=== PATIENT | male | born 1945 | race Caucasian/White ===

== ENCOUNTER 2017-06-24 16:35 | Emergency (ER) | payer OTHER ==
[~2017-06-24] VITALS: Ht 190.5 cm; Wt 72.9 kg
[~2017-06-24 16:35] MED LIST: AMLO5TAB2 PO; ASPCH81 PO; FENU1CAP2 PO; LPR25 PO; METO25TA56 PO
[2017-06-24 16:39] VITALS: TEMP 36.6; Ht 190.5 cm; Wt 72.9 kg
[2017-06-24] MEDS ORDERED: SODIUM POLYST. SULF SUSP 15G/60ML PO STA (17:40)
[2017-06-24] MEDS ORDERED: SODIUM CHLORIDE 0.9% 1000ML 1,000 ML IV STA (17:40)
[2017-06-24 18:16] LABS: ISTAT CREATININE 2.2 mg/dl (0.6-1.3); ISTAT HEMOGLOBIN 16.7 g/dl (14.0-18.0); ISTAT IONIZED CALCIUM 1.24 mmol/l (1.12-1.32)
[2017-06-24] MEDS ORDERED: TURM1CAP2 PO (18:55)
[2017-06-24] MEDS ORDERED: OMEG10007 PO (18:55)
[2017-06-24] MEDS ORDERED: ZINC1TAB PO (18:55)
[2017-06-24] MEDS ORDERED: ASCO500C43 PO (18:55)
[2017-06-24] MEDS ORDERED: ENAL5TAB83 PO (18:55)
[2017-06-24] MEDS ORDERED: [UNRECOGNIZED DRUG - CODE] PO (18:55)
[2017-06-24] MEDS ORDERED: COEN1CAP17 PO (18:55)
[2017-06-24] MEDS ORDERED: ATOR-22 PO (18:55)
[2017-06-24] MEDS ORDERED: NUTRCAP54 PO (18:55)
--- NOTE | 2017-06-24 19:40 | EMERGENCY ROOM VISIT NOTE ---
History Report prepared by David: Charanjit Butler Under the Supervision of: Dr. Rishabh Covington D.O. First contact with patient: 17:33 Chief Complaint: ABNORMAL LABS Stated Complaint: POTASSIUM LEVEL OF 6 History of Present Illness The patient is a 72 year old male who presents to the Emergency Room with complaints of an abnormal potassium level of 6. He has a past medical history of kidney disease for the past year. He states that it has been well controlled over this time. 2 weeks ago, the patient's K level was 6.0, but he stopped taking his organic potassium supplement, and it went down to 5.3. Last week, he got his bottom teeth pulled, and has been having an abnormal from baseline diet of soft prepared meals. He usual eats organically, and has been for the past 40 years. Since he began eating this way, his K has been elevated. He went to a check up with his PCP today, and was referred here. He currently feels fine, and denies any abnormal symptoms. His only medication is Metoprolol. Source of History: patient Onset: 2 weeks Position: other (global) Symptom Intensity: K of 6 Quality: other (Abnormal labs) Timing: waxes/wanes Note: He denies any other abnormal symptoms. Review of Systems See HPI for pertinent positives & negatives. A total of 10 systems reviewed and were otherwise negative. Past Medical & Surgical Medical Problems: (1) Arrhythmia Family History Hypertension Social History Smoking Status: Never Smoker Smokeless Tobacco Use: No Alcohol Use: none Drug Use: none Marital Status: single Housing Status: lives alone Occupation Status: retired Current/Historical Medications Scheduled Ascorbic Acid (Vitamin C 500 mg), 500 MG PO DAILY Atorvastatin (Lipitor), 20 MG PO DAILY Coenzyme Q10 (Ubidecarenone) (Co Q 10), 100 MG PO DAILY Enalapril (Vasotec), 5 MG PO DAILY Fish Oil ([place]-3), 1 CAP PO DAILY Metoprolol Tartrate (Lopressor), 50 MG PO QAM Metoprolol Tartrate (Lopressor) (Lopressor), 25 MG PO QPM Nicotinamide Adenine Dinucleot (Nadh), 10 MG PO MWF Nutritional Supplements (Grapeseed Extract), 1 CAP PO DAILY Turmeric (Curcuma Longa) (Turmeric), 2 CAP PO DAILY Zinc Gluconate (Zinc), 50 MG PO DAILY Allergies Coded Allergies: Lisinopril (Verified Allergy, Intermediate, overall physical decline, 09/06) Physical Exam Vital Signs Date Time Temp Pulse Resp B/P (MAP) Pulse Ox O2 Delivery O2 Flow Rate FiO2 06/24/17 19:47 69 16 171/82 98 06/24/17 19:05 69 18 160/73 100 Room Air 06/24/17 18:11 64 20 144/51 96 06/24/17 17:43 66 06/24/17 16:39 36.6 68 18 157/74 98 Physical Exam CONSTITUTIONAL/VITAL SIGNS: Reviewed / noted above. GENERAL: Non-toxic in appearance. INTEGUMENTARY: Warm, dry, and [place]. HEAD: Normocephalic. EYES: without scleral icterus or trauma. ENT/OROPHARYNX: clear and moist. LYMPHADENOPATHY/NECK: Is supple without lymphadenopathy or meningismus. RESPIRATORY: Lungs clear and equal. CARDIOVASCULAR: Regular rate and rhythm. GI/ABDOMEN: Soft and nontender. No organomegaly or pulsatile mass. No rebound or guarding. Normal bowel sounds. EXTREMITIES: Warm and well perfused. BACK: No CVA tenderness. NEUROLOGICAL: Intact without focal deficits. PSYCHIATRIC: normal affect. MUSCULOSKELETAL: Normally developed with good muscle tone. Medical Decision & Procedures Laboratory Results Test 06/24/17 18:03 Bedside Hemoglobin 16.7 g/dl (14.0-18.0) Bedside Hematocrit 49 % (42-52) Bedside Sodium 144 mEq/L (135-144) Bedside Potassium 4.9 mEq/L (3.3-5.0) Bedside Chloride 108 mEq/L (101-112) Bedside Total CO2 25 mEq/l (24-31) Anion Gap 17.0 mmol/L (16-25) Bedside Blood Urea Nitrogen 37 mg/dl (7-18) Bedside Creatinine 2.2 mg/dl (0.6-1.3) Bedside Glucose (other) 71 mg/dl (70-99) Bedside Ionized Calcium ([place]) 1.24 mmol/l (1.12-1.32) Laboratory results as stated above per my review. Medications Administered Medications (Trade) Dose Ordered Sig/Mayte Route Start Time Stop Time Status Last Admin Dose Admin Sodium Chloride 1,000 ml @ 999 mls/hr Q1H1M STAT IV 06/24/17 17:40 8/25/17 18:40 DC 06/24/17 17:40 999 MLS/HR Sodium Polystyrene Sulfonate (Kayexalate Susp) 30 gm NOW STAT PO 06/24/17 17:40 06/24/17 17:42 DC 06/24/17 18:10 30 GM ECG Indication: other (Abnormal labs) Rate (beats per minute): 56 Rhythm: sinus bradycardia Findings: no acute ischemic change, no ectopy ED Course 1732: Previous medical records were reviewed. The patient was evaluated in room A6. A complete history and physical examination was performed. 1739: Ordered Kayexalate Susp 30 gm PO, Sodium Chloride 1000 ml @ 999 mls/hr IV 1941: On reevaluation, the patient is resting. I discussed the results and findings with the patient. He verbalized agreement of the treatment plan. He was discharged home. Medical Decision Differentials include: Acute coronary syndrome, myocardial infarction, CVA, TIA , anemia, infection, pneumonia, UTI, pyelonephritis, poor nutrition, dehydration , electrolyte disturbance, and hypoglycemia. This is a 72-year-old male who is sent in for hyperkalemia. His outpatient blood work suggests that a potassium of 6.0. I-STAT today was unremarkable. EKG was unremarkable. He does have chronic renal insufficiency. He was hydrated with IV fluids and given 1 dose of Kayexalate here. He is felt to be stable for discharge. Medication Reconcilliation Current Medication List: was personally reviewed by me Blood Pressure Screening Patient's blood pressure: Elevated blood pressure Blood pressure disposition: Elevated BP felt to be situational Impression Primary Impression: Renal insufficiency Additional Impression: Hyperkalemia Scribe Attestation The scribe's documentation has been prepared under my direction and personally reviewed by me in its entirety. I confirm that the note above accurately reflects all work, treatment, procedures, and medical decision making performed by me. Departure Information Dispostion Home / Self-Care Referrals Jc Spear MD (PCP) Forms HOME CARE DOCUMENTATION FORM, IMPORTANT VISIT INFORMATION, WORK / SCHOOL INSTRUCTIONS Patient Instructions My [facility] Additional Instructions Follow-up with your doctor for further care and evaluation in <1 week. Return to the emergency department for worsening or new symptoms or any concerns. You have been examined and treated today on an emergency basis only. This is not a substitute for, or an effort to provide, complete comprehensive medical care. It is impossible to recognize and treat all injuries or illnesses in a single emergency department visit. It is therefore important that you follow up closely with your doctor. Call as soon as possible for an appointment. Problem Qualifiers
[2017-06-24 19:47] VITALS: BP 171/82; PULSE 69; O2SAT 98
== END 2017-06-24 19:47 | disposition home or self-care (01) ==
LOC: C.EDB 16:36 → C.EDA 19:47
DX: E87.5 Hyperkalemia (principal); N18.9 Chronic kidney disease, unspecified; Z79.899 Other long term (current) drug therapy; Z82.49 Family history of ischemic heart disease and other diseases of the circulatory system

== ENCOUNTER 2018-06-08 13:57 | Emergency (ER) | payer OTHER ==
[~2018-06-08] VITALS: Ht 190.5 cm; Wt 75.6 kg
[2018-06-08 13:57] VITALS: O2SAT 96
[~2018-06-08 13:57] MED LIST changes: -AMLO5TAB2 PO; +ASCO500C43 PO; -ASPCH81 PO; +ATOR-22 PO; +COEN1CAP17 PO; +ENAL5TAB83 PO; -FENU1CAP2 PO; +NUTRCAP54 PO; +OMEG10007 PO; +SODIUM CHLORIDE 0.9% 1000ML 1,000 ML IV SCH; +TURM1CAP2 PO; +ZINC1TAB PO; +[UNRECOGNIZED DRUG - CODE] PO
--- NOTE | 2018-06-08 14:15 | DIAGNOSTIC IMAGING REPORT ---
CT OF THE HEAD WITHOUT CONTRAST CLINICAL HISTORY: Stroke symptoms. Left facial droop. COMPARISON STUDY: No previous studies for comparison. CT DOSE: 537.48 mGy.cm TECHNIQUE: Helical axial images of the head were obtained without IV contrast. Automated exposure control was utilized for the study. A dose lowering technique was utilized adhering to the principles of ALARA. FINDINGS: No acute intracranial hemorrhage, midline shift or mass effect is present. Mild atrophy is noted. Moderate white matter hypodensity suggests small vessel disease. Mild encephalomalacia within the superior right frontal lobe suggest old infarct. There are no findings to suggest acute dural sinus thrombosis or acute territorial infarct. There are no significant calvarial abnormalities. Visualized portions of the sinuses and mastoid air cells are clear. IMPRESSION: 1. No acute intracranial findings. 2. 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 Electronically signed by: Jadon Vigil M.D. 06/08/2018 2:13 PM Dictated Date/Time: 06/08/2018 2:08 PM
[2018-06-08 14:18] VITALS: Ht 190.5 cm; Wt 75.6 kg
[2018-06-08 14:20] LABS: BASO % 0.1 %; BASO ABS # 0.01 K/uL (0-0.2); EOS % 1.8 %; EOS ABS # 0.15 K/uL (0-0.5); HEMATOCRIT 45.8 % (42-52); HEMOGLOBIN 15.5 g/dL (14.0-18.0); IG# 0.01 K/uL (0.00-0.02); LYMPH % 18.9 %; LYMPH ABS # 1.62 K/uL (1.2-3.4); MEAN CORPUSCULAR HEMOGLOBIN 32.2 pg (25-34); MEAN CORPUSCULAR HGB CONC 33.8 g/dl (32-36); MEAN PLATELET VOLUME 10.8 fL (7.4-10.4); MONO ABS # 0.77 K/uL (0.11-0.59); NEUT % 70.1 %; NEUT ABS # 5.99 K/uL (1.4-6.5); PLATELET COUNT 138 K/uL (130-400); RED CELL DISTRIBUTION WIDTH CV 12.7 % (11.5-14.5); RED CELL DISTRIBUTION WIDTH SD 43.9 fL (36.4-46.3); WHITE BLOOD COUNT 8.55 K/uL (4.8-10.8)
--- NOTE | 2018-06-08 14:23 | DIAGNOSTIC IMAGING REPORT ---
CHEST ONE VIEW PORTABLE CLINICAL HISTORY: Stroke dyspnea mental status change COMPARISON STUDY: No previous studies for comparison. FINDINGS: The bones soft tissues and hemidiaphragms are normal. The cardiomediastinal silhouette is normal. The lungs are clear. The pulmonary vasculature is normal. IMPRESSION: Negative chest. The above report was generated using voice recognition software. It may contain grammatical, syntax or spelling errors. Electronically signed by: Claude Jonas M.D. 06/08/2018 2:21 PM Dictated Date/Time: 06/08/2018 2:21 PM
[2018-06-08 14:28] LABS: ISTAT CREATININE 1.5 mg/dl (0.6-1.3); ISTAT IONIZED CALCIUM 1.14 mmol/l (1.12-1.32)
[2018-06-08 14:30] LABS: PTT PATIENT 26.8 SECONDS (21.0-31.0)
--- NOTE | 2018-06-08 14:30 | EMERGENCY ROOM VISIT NOTE ---
History Report prepared by David: Boyd Ortiz Under the Supervision of: Dr. José Luis Bansal D.O. First contact with patient: 13:54 Stated Complaint: STROKE ALERT History of Present Illness The patient is a 73 year old male who presents to the Emergency Room via EMS due to waxing and waning stroke-like symptoms that began approximately 45 minutes ago while shopping at [employer]. EMS states patient began experiencing right arm numbness, slurred speech, and a right-sided facial droop. EMS adds when they arrived the patient's symptoms appeared to be improving. Patient has a history of atrial fibrillation. He denies taking blood thinners or history of head injuries. Source of History: patient, EMS Onset: 45 minutes ago Position: head, arm (right) Timing: waxes/wanes Modifying Factors (Relieving): other (None) Associated Symptoms: + weakness, + numbness Review of Systems See HPI for pertinent positives & negatives. A total of 10 systems reviewed and were otherwise negative. Past Medical & Surgical Medical Problems: (1) Acute CVA (cerebrovascular accident) (2) Arrhythmia (3) Lightheaded (4) Vertigo Family History Hypertension Social History Smoking Status: Never Smoker Alcohol Use: none Drug Use: none Marital Status: single Housing Status: lives alone Occupation Status: retired Current/Historical Medications Scheduled Amlodipine (Norvasc), 5 MG PO BID Atorvastatin (Lipitor), 20 MG PO DAILY Cholecalciferol (Vitamin D3), 1 TAB PO DAILY Coenzyme Q10 (Ubidecarenone) (Coq10), 1 CAP PO DAILY Fish Oil ([place]-3), 1 CAP PO DAILY Metoprolol Tartrate (Lopressor), 25 MG PO QPM Metoprolol Tartrate (Lopressor) (Lopressor), 50 MG PO QAM Turmeric (Curcuma Longa) (Turmeric), 1 CAP PO DAILY Vitamins C & E (Vitamin C), 500 MG PO DAILY Allergies Coded Allergies: Lisinopril (Verified Allergy, Intermediate, overall physical decline, 09/06) Physical Exam Vital Signs Date Time Temp Pulse Resp B/P (MAP) Pulse Ox O2 Delivery O2 Flow Rate FiO2 06/08/18 21:30 70 18 159/73 95 Room Air 06/08/18 21:00 70 18 161/67 96 Room Air 06/08/18 20:30 36.5 71 18 161/70 96 Room Air 8 20:00 73 18 163/71 96 Room Air 06/08/18 19:30 72 18 174/73 95 Room Air 8 19:00 64 16 169/70 98 Room Air 818 18:30 67 16 153/76 94 Room Air 8 17:59 62 16 179/94 96 Room Air 06/08/18 17:30 65 16 165/76 95 Room Air 8 17:00 62 16 156/81 97 Room Air 8 16:39 67 20 171/91 94 Room Air 8 16:24 66 16 149/70 95 Room Air 06/08/18 16:09 67 16 158/72 96 Room Air 06/08/18 15:55 62 18 149/71 94 Room Air 8 15:40 62 18 152/67 94 Room Air 06/08/18 15:11 67 18 156/70 96 Room Air 06/08/18 15:02 65 18 161/87 96 Room Air 06/08/18 14:53 63 20 160/72 97 Room Air 06/08/18 14:30 68 18 157/86 98 Room Air 06/08/18 14:15 68 18 157/103 98 Room Air 06/08/18 14:08 72 8 13:57 36.9 71 18 160/70 96 Room Air 8 13:57 36.9 71 18 160/74 96 Room Air 06/08/18 13:57 96 Room Air Physical Exam GENERAL: Patient is awake, alert, and in no acute distress. Patient is resting comfortably and showing no signs of anxiety EYES: The conjunctivae are clear. The pupils are round and reactive. EARS, NOSE, MOUTH AND THROAT: The nose is without any evidence of any deformity. Mucous membranes are moist. Tongue is midline NECK: The neck is nontender and supple. RESPIRATORY: Normal respiratory effort is noted. There is no evidence of wheezing rhonchi or rales to auscultation. CARDIOVASCULAR: Regular rate and rhythm noted. There no murmurs rubs or gallops normal S1 normal S2 GASTROINTESTINAL: The abdomen is soft. Bowel sounds are present in all quadrants. Abdomen is nontender. MUSCULOSKELETAL/EXTREMITIES: There is no evidence of gross deformity. Full range of motion is noted in the hips and shoulders. SKIN: There is no obvious evidence of any rash. There are no petechiae, pallor or cyanosis noted. NEUROLOGIC: Patient is awake alert and oriented x3. Right facial droop noted, forehead sparing, and no drift in either upper extremities. Patient was able to hold each leg off the bed for longer than 5 seconds. Medical Decision & Procedures ER Provider Diagnostic Interpretation: Radiology results as stated below per my review and radiologist interpretation: HEAD WITHOUT CONTRAST (CT) CT DOSE: 614.27 mGy.cm HISTORY: Mental status change worsening S/S, S/P TPA TECHNIQUE: Multiaxial CT images of the head were performed without the use of intravenous contrast. A dose lowering technique was utilized adhering to the principles of ALARA. Comparison: Study earlier the same date Findings: The paranasal sinuses and mastoid air cells are clear. The calvarium and skull base are intact. The ventricles and sulci are within normal limits. There is no mass, hematoma, midline shift, or acute infarct. Impression: No acute intracranial abnormality. Chronic small vessel change The above report was generated using voice recognition software. It may contain grammatical, syntax or spelling errors. Electronically signed by: Claude Jonas M.D. 06/08/2018 4:53 PM NECK ANGIO WITH CONTRAST CLINICAL HISTORY: 73 years-old Male presenting with stroke alert, left facial droop. TECHNIQUE: Multidetector CT angiography of the neck was performed after the administration of intravenous contrast. 3-D volumetric and/or maximum intensity projection (MIP) images were subsequently reconstructed for review. IV contrast: 115 mL of Optiray 320. A dose lowering technique was used consistent with the principles of ALARA (as low as reasonably achievable). Stenosis measurements were based on NASCET-like criteria. COMPARISON: None. CT DOSE (mGy.cm): The estimated cumulative dose is 564.24 mGy.cm. FINDINGS: Software Specialist topogram: Unremarkable. Aortic arch: Atherosclerosis of the three-vessel aortic arch with patent origins of the branch vessels. Innominate artery: Atherosclerotic plaque with less than 25% stenosis in the proximal portion (series 2 image 55). Right subclavian artery: Patent. Right common carotid artery: Noncalcified atherosclerotic plaque results and luminal irregularity of the right common carotid artery without significant narrowing proximal to the bifurcation. Right internal and external carotid arteries: At the level of the right carotid bifurcation, there is significant calcified and noncalcified atherosclerotic plaque with complete occlusion of the origin of the right internal carotid artery (series 2 image 228). The right ICA remains occluded to the carotid terminus. The right external carotid artery is widely patent. Left common carotid artery: Noncalcified atherosclerotic plaque results and luminal irregularity of the left common carotid artery. Left internal and external carotid arteries: Significant noncalcified atherosclerotic plaque at the left carotid bifurcation with resultant critical stenosis of the origin of the left internal carotid artery (series 2 image 232). The remainder of the left internal carotid artery is widely patent. Left subclavian artery: Atherosclerotic plaque mildly narrows the origin of the left subclavian artery (less than 25% stenosis). Vertebral arteries: Codominant vertebral arteries. Origins and courses of the bilateral vertebral arteries patent. Other: Soft tissues of the neck normal allowing for the phase of contrast. Degenerative changes of the cervical spine. Advanced emphysema at the lung apices. IMPRESSION: 1. 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 2. Critical stenosis of the origin of the left internal carotid artery. 3. Emphysema. The report will be called/faxed according to standard departmental protocol. Electronically signed by: Xavi Martinez M.D. 06/08/2018 3:51 PM HEAD ANGIO WITH CONTRAST CLINICAL HISTORY: 73 years-old Male presenting with stroke alert, left facial droop. TECHNIQUE: Multidetector CT angiography of the head was performed after the administration of intravenous contrast. 3-D volumetric and/or maximum intensity projection (MIP) images were subsequently reconstructed for review. IV contrast: 115 mL of Optiray 320. A dose lowering technique was used consistent with the principles of ALARA (as low as reasonably achievable). COMPARISON: Correlation made to noncontrast head CT performed earlier today. CT DOSE (mGy.cm): The estimated cumulative dose is 564.24. FINDINGS: Software Specialist topogram: Unremarkable. Anterior circulation: Complete nonopacification of the intracranial portion of the right internal carotid artery extending from the occluded cervical portion. The left internal carotid artery is patent. Collateral filling of the right anterior and middle cerebral arteries secondary to the patent right posterior communicating artery and potentially anterior communicating artery. Anterior communicating artery patent. Posterior circulation: Codominant vertebral arteries. Intradural portions of the vertebral arteries patent. Posterior inferior cerebellar arteries patent. Basilar artery patent. Anterior inferior cerebellar arteries poorly visualized. Superior cerebellar and posterior cerebral arteries patent. Right posterior communicating artery patent. Left PICA either hypoplastic or aplastic. Dural venous sinuses: Patent. Other: Old right frontal lobe infarct noted in the paramedian vertex. Calvarium intact. Upper cervical spine normal. IMPRESSION: 1. Occlusion of the right internal carotid artery. The right anterior circulation remains patent via collateral filling. No other vessel occlusion. No aneurysm. Electronically signed by: Xavi Martinez M.D. 06/08/2018 3:44 PM CHEST ONE VIEW PORTABLE CLINICAL HISTORY: Stroke dyspnea mental status change COMPARISON STUDY: No previous studies for comparison. FINDINGS: The bones soft tissues and hemidiaphragms are normal. The cardiomediastinal silhouette is normal. The lungs are clear. The pulmonary vasculature is normal. IMPRESSION: Negative chest. The above report was generated using voice recognition software. It may contain grammatical, syntax or spelling errors. Electronically signed by: Claude Jonas M.D. 06/08/2018 2:[address] OF THE HEAD WITHOUT CONTRAST CLINICAL HISTORY: Stroke symptoms. Left facial droop. COMPARISON STUDY: No previous studies for comparison. CT DOSE: 537.48 mGy.cm TECHNIQUE: Helical axial images of the head were obtained without IV contrast. Automated exposure control was utilized for the study. A dose lowering technique was utilized adhering to the principles of ALARA. FINDINGS: No acute intracranial hemorrhage, midline shift or mass effect is present. Mild atrophy is noted. Moderate white matter hypodensity suggests small vessel disease. Mild encephalomalacia within the superior right frontal lobe suggest old infarct. There are no findings to suggest acute dural sinus thrombosis or acute territorial infarct. There are no significant calvarial abnormalities. Visualized portions of the sinuses and mastoid air cells are clear. IMPRESSION: 1. No acute intracranial findings. 2. 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 Electronically signed by: Jadon Vigil M.D. 06/08/2018 2:13 PM Laboratory Results 06/08/18 14:09 Red Blood Count 4.82, Mean Corpuscular Volume 95.0, Mean Corpuscular Hemoglobin 32.2, Mean Corpuscular Hemoglobin Concent 33.8, Mean Platelet Volume 10.8, Neutrophils (%) (Auto) 70.1, Lymphocytes (%) (Auto) 18.9, Monocytes (%) (Auto) 9.0, Eosinophils (%) (Auto) 1.8, Basophils (%) (Auto) 0.1, Neutrophils # (Auto) 5.99, Lymphocytes # (Auto) 1.62, Monocytes # (Auto) 0.77, Eosinophils # (Auto) 0.15, Basophils # (Auto) 0.01 06/08/18 14:09 Test 06/08/18 14:09 06/08/18 14:15 06/08/18 16:00 White Blood Count 8.55 K/uL (4.8-10.8) Red Blood Count 4.82 M/uL (4.7-6.1) Hemoglobin 15.5 g/dL (14.0-18.0) Hematocrit 45.8 % (42-52) Mean Corpuscular Volume 95.0 fL (80-100) Mean Corpuscular Hemoglobin 32.2 pg (25-34) Mean Corpuscular Hemoglobin Concent 33.8 g/dl (32-36) Platelet Count 138 K/uL (130-400) Mean Platelet Volume 10.8 fL (7.4-10.4) Neutrophils (%) (Auto) 70.1 % Lymphocytes (%) (Auto) 18.9 % Monocytes (%) (Auto) 9.0 % Eosinophils (%) (Auto) 1.8 % Basophils (%) (Auto) 0.1 % Neutrophils # (Auto) 5.99 K/uL (1.4-6.5) Lymphocytes # (Auto) 1.62 K/uL (1.2-3.4) Monocytes # (Auto) 0.77 K/uL (0.11-0.59) Eosinophils # (Auto) 0.15 K/uL (0-0.5) Basophils # (Auto) 0.01 K/uL (0-0.2) RDW Standard Deviation 43.9 fL (36.4-46.3) RDW Coefficient of Variation 12.7 % (11.5-14.5) Immature Granulocyte % (Auto) 0.1 % Immature Granulocyte # (Auto) 0.01 K/uL (0.00-0.02) Prothrombin Time 10.5 SECONDS (9.0-12.0) Prothromb Time International Ratio 1.0 (0.9-1.1) Activated Partial Thromboplast Time 26.8 SECONDS (21.0-31.0) Partial Thromboplastin Ratio 1.0 Est Creatinine Clear Calc Drug Dose 46.5 ml/min Estimated GFR () 52.8 Estimated GFR (Non- 45.6 BUN/Creatinine Ratio 15.7 (10-20) Bedside Glucose 106 mg/dl (70-99) Calcium Level 8.3 mg/dl (8.5-10.1) Magnesium Level 1.9 mg/dl (1.8-2.4) Total Creatine Kinase 126 U/L (39-308) Creatine Kinase MB 1.6 ng/ml (0.5-3.6) Creatine Kinase MB Ratio 1.3 (0-3.0) Troponin I < 0.015 ng/ml (0-0.045) Bedside Hemoglobin 15.3 g/dl (14.0-18.0) Bedside Hematocrit 45 % (42-52) Bedside Sodium 142 mEq/L (135-144) Bedside Potassium 4.0 mEq/L (3.3-5.0) Bedside Chloride 106 mEq/L (101-112) Bedside Total CO2 22 mEq/l (24-31) Anion Gap 19.0 mmol/L (16-25) Bedside Blood Urea Nitrogen 25 mg/dl (7-18) Bedside Creatinine 1.5 mg/dl (0.6-1.3) Bedside Glucose (other) 116 mg/dl (70-99) Bedside Ionized Calcium ([place]) 1.14 mmol/l (1.12-1.32) Urine Color YELLOW Urine Appearance CLEAR (CLEAR) Urine pH 5.5 (4.5-7.5) Urine Specific [place] 1.010 (1.000-1.030) Urine Protein NEG (NEG) Urine Glucose (UA) NEG (NEG) Urine Ketones NEG (NEG) Urine Occult Blood NEG (NEG) Urine Nitrite NEG (NEG) Urine Bilirubin NEG (NEG) Urine Urobilinogen NEG (NEG) Urine Leukocyte Esterase NEG (NEG) Laboratory results per my review. Medications Administered Medications (Trade) Dose Ordered Sig/Mayte Route Start Time Stop Time Status Last Admin Dose Admin Sodium Chloride 1,000 ml @ 50 mls/hr Q20H IV 06/08/18 13:55 07/08/18 13:54 06/08/18 14:36 50 MLS/HR Alteplase, Recombinant 68 mg/ Empty Bag 168 ml @ 0 mls/hr NOW STAT IV 06/08/18 14:38 06/08/18 14:40 DC 06/08/18 14:38 61.2 MLS/HR ECG Per My Interpretation Indication: weakness Rate (beats per minute): 67 Rhythm: normal sinus Findings: PAC (PACs noted), other (No acute ST segment changes) Comparison ECG Date: 06/24/17 Change: no significant change ED Course 1353: The patient was evaluated in room A1. A complete history and physical examination were performed. 1355: NSS 1,000 ml @ 50 mls/hr IV 1414: I spoke with radiology about the patient's CT scan. 1419: [place] tele-neurologist is at patient's bed-side. 1437: I reevaluate the patient. I discussed and updated the patient and his neighbor on the patient's findings. Initially the patient stated he did not want TP but states that he does want it now. 1438: Alteplase, Recombinant 68mg/Empty bag 168 @ 0 mls/hr Protocol IV 1454: I reevaluated the patient. 1500: Ioversol 100ml IV 1631: I reassessed and updated the patient on his findings. 1711: I reevaluated the patient who states he is feeling better. 1843: Upon reevaluation, the patient will be further evaluated. I discussed results and treatment plan with him. He verbalizes agreement and understanding. I spoke with Dr. Boucher of [facility]. The patient will be evaluated for further management and care. Medical Decision Prior records/ancillary studies reviewed and summarized above. Nursing notes reviewed. Differential diagnosis: Etiologies such as metabolic, infection, hypo/hyperglycemia, electrolyte abnormalities, cardiac sources, intracerebral event, toxicologic, neurologic, as well as others were entertained. Additional history is obtained from the prehospital personnel. The patient is a 73-year-old male who presented to the emergency department for an evaluation of strokelike symptoms. The patient had an acute onset of aphasia and facial droop. He also had weakness in his right arm. I was notified by the prehospital personnel and the patient was made a stroke alert. The patient's initial CAT scan did not show any acute disease and he was felt to be a good candidate for TPA. I discussed patient's case with the [facility] stroke neurologist. They agreed with the decision for TPA. I discussed the risks and benefits of TPA with the patient. He did take some time to make his decision but ultimately was agreeable to TPA. He was given peripheral TPA in the emergency department. He was reevaluated multiple times. His condition continued to improve. I discussed his case with the [facility] stroke neurologist again. He recommended obtaining angiography of the head and neck. This revealed significant stenosis of the left internal carotid as well as occlusion of the right internal carotid. I discussed this case with the on-call [facility] hospitalist. They evaluated the patient in the emergency department but once they discussed the case with the on-call [facility] neurologist it was felt the patient would be a good candidate for transfer for possible intervention of the internal carotid stenosis. I discussed this case with the neurologist as well as the tongue lining stitcher at [facility]. They have agreed to accept the patient in transfer. The patient is awaiting transfer at this time. Transfer paperwork was filled out by myself. The patient's blood pressure was not aggressively managed in the emergency department for fear that this would create a steal syndrome the patient will have another stroke. I discussed this with the patient as well as with the nursing staff. Medication Reconcilliation Current Medication List: was personally reviewed by me Blood Pressure Screening Patient's blood pressure: Elevated blood pressure Blood pressure disposition: Referred to PCP Consults Time Called: 1404 Consulting Physician: Dr. Ravinder Berger Neurologist Returned Call: 1405 I discussed the patient's case with Dr. Castellon. The patient will be evaluated for further management. Additional Consults: Time Called: 1443 Consulted Physician: Dr. Ravinder Berger Neurologist Returned Call: 1445 Additional Comments: I discussed the patient's case with Dr. Castellon. He states to get a CT angio of the patient's head. Time Called: 1603 Consulted Physician: Dr. Ravinder Berger Neurologist Returned Call: 1604 Additional Comments: I discussed the patient's case with Dr. Castellon. I discussed with him the patient's CT angio. Time Called: 1622 Consulted Physician: Ronit Graves PA-C Returned Call: 1624 Additional Comments: I discussed the patient's case with Ronit Willoughby. The patient will be evaluated for further management. Time Called: 174 Consulted Physician: Dr. Collins Finley Hospitalist Returned Call: 1747 Additional Comments: I discussed the patient's case with Dr. Guadalupe. She states she talked with Dr. Sutherland who recommends transferring the patient to a tertiary care facility. Time Called: 174 Consulted Physician: Dr. Lydia Finley Neurologist Returned Call: 1748 Additional Comments: I discussed the patient's case with Dr. Freeman. He recommends air transport for the patient. Time Called: 183 Consulted Physician: Dr. Sander Finley Steam Press Operator Returned Call: 1833 Additional Comments: I discussed the patient's case with Dr. Boucher. The patient will be evaluated for further management. Impression Primary Impression: Acute CVA (cerebrovascular accident) Additional Impressions: Carotid artery occlusion Carotid artery stenosis Critical Care I have personally spent greater than 120 minutes of critical care time in the direct management of this patient. This includes bedside care, interpretation of diagnostic studies, and testing, discussion with consultants, patient, and family members, and other required patient management activities. This 120 minutes is in excess of all separately billable procedures. Scribe Attestation The scribe's documentation has been prepared under my direction and personally reviewed by me in its entirety. I confirm that the note above accurately reflects all work, treatment, procedures, and medical decision making performed by me. Departure Information Dispostion Transfer Acute Care Facility Referrals Jc Spear MD (PCP) Forms HOME CARE DOCUMENTATION FORM, IMPORTANT VISIT INFORMATION Patient Instructions My [facility] Stroke History Time Last Known Well Between 1:10 and 1:20pm Stroke t-PA Criteria Reviewed Meets criteria for t-PA Reason t-PA Not Given Treatment provided - N/A Problem Qualifiers Additional Impressions: Carotid artery occlusion Laterality: right Qualified Codes: I65.21 - Occlusion and stenosis of right carotid artery Carotid artery stenosis Laterality: left Qualified Codes: I65.22 - Occlusion and stenosis of left carotid artery
[2018-06-08] MEDS ORDERED: LPT20 PO (14:37)
[2018-06-08] MEDS ORDERED: METO25TA56 PO (14:37)
[2018-06-08] MEDS ORDERED: AMLO5TAB3 PO (14:37)
[2018-06-08] MEDS ORDERED: LPR25 PO (14:37)
[2018-06-08] MEDS ORDERED: RECOMBINANT IV STA (14:38)
[2018-06-08] MEDS ORDERED: ALTEPLASE IV STA (14:38)
[2018-06-08 14:42] LABS: BLOOD UREA NITROGEN 23 mg/dl (7-18); CALCIUM 8.3 mg/dl (8.5-10.1); CARBON DIOXIDE 24 mmol/L (21-32); CKMB 1.6 ng/ml (0.5-3.6); CREATININE 1.49 mg/dl (0.60-1.40); GLUCOSE 112 mg/dl (70-99); POTASSIUM 4.1 mmol/L (3.5-5.1); SODIUM 139 mmol/L (136-145)
[2018-06-08] MEDS ORDERED: OPTIRAY 320 IV PRN (15:00)
--- NOTE | 2018-06-08 15:45 | DIAGNOSTIC IMAGING REPORT ---
HEAD ANGIO WITH CONTRAST CLINICAL HISTORY: 73 years-old Male presenting with stroke alert, left facial droop. TECHNIQUE: Multidetector CT angiography of the head was performed after the administration of intravenous contrast. 3-D volumetric and/or maximum intensity projection (MIP) images were subsequently reconstructed for review. IV contrast: 115 mL of Optiray 320. A dose lowering technique was used consistent with the principles of ALARA (as low as reasonably achievable). COMPARISON: Correlation made to noncontrast head CT performed earlier today. CT DOSE (mGy.cm): The estimated cumulative dose is 564.24. FINDINGS: Investigative Reporter topogram: Unremarkable. Anterior circulation: Complete nonopacification of the intracranial portion of the right internal carotid artery extending from the occluded cervical portion. The left internal carotid artery is patent. Collateral filling of the right anterior and middle cerebral arteries secondary to the patent right posterior communicating artery and potentially anterior communicating artery. Anterior communicating artery patent. Posterior circulation: Codominant vertebral arteries. Intradural portions of the vertebral arteries patent. Posterior inferior cerebellar arteries patent. Basilar artery patent. Anterior inferior cerebellar arteries poorly visualized. Superior cerebellar and posterior cerebral arteries patent. Right posterior communicating artery patent. Left PICA either hypoplastic or aplastic. Dural venous sinuses: Patent. Other: Old right frontal lobe infarct noted in the paramedian vertex. Calvarium intact. Upper cervical spine normal. IMPRESSION: 1. Occlusion of the right internal carotid artery. The right anterior circulation remains patent via collateral filling. No other vessel occlusion. No aneurysm. Electronically signed by: Xavi Martinez M.D. 06/08/2018 3:44 PM Dictated Date/Time: 06/08/2018 3:39 PM
--- NOTE | 2018-06-08 15:52 | DIAGNOSTIC IMAGING REPORT ---
NECK ANGIO WITH CONTRAST CLINICAL HISTORY: 73 years-old Male presenting with stroke alert, left facial droop. TECHNIQUE: Multidetector CT angiography of the neck was performed after the administration of intravenous contrast. 3-D volumetric and/or maximum intensity projection (MIP) images were subsequently reconstructed for review. IV contrast: 115 mL of Optiray 320. A dose lowering technique was used consistent with the principles of ALARA (as low as reasonably achievable). Stenosis measurements were based on NASCET-like criteria. COMPARISON: None. CT DOSE (mGy.cm): The estimated cumulative dose is 564.24 mGy.cm. FINDINGS: [employer] topogram: Unremarkable. Aortic arch: Atherosclerosis of the three-vessel aortic arch with patent origins of the branch vessels. Innominate artery: Atherosclerotic plaque with less than 25% stenosis in the proximal portion (series 2 image 55). Right subclavian artery: Patent. Right common carotid artery: Noncalcified atherosclerotic plaque results and luminal irregularity of the right common carotid artery without significant narrowing proximal to the bifurcation. Right internal and external carotid arteries: At the level of the right carotid bifurcation, there is significant calcified and noncalcified atherosclerotic plaque with complete occlusion of the origin of the right internal carotid artery (series 2 image 228). The right ICA remains occluded to the carotid terminus. The right external carotid artery is widely patent. Left common carotid artery: Noncalcified atherosclerotic plaque results and luminal irregularity of the left common carotid artery. Left internal and external carotid arteries: Significant noncalcified atherosclerotic plaque at the left carotid bifurcation with resultant critical stenosis of the origin of the left internal carotid artery (series 2 image 232). The remainder of the left internal carotid artery is widely patent. Left subclavian artery: Atherosclerotic plaque mildly narrows the origin of the left subclavian artery (less than 25% stenosis). Vertebral arteries: Codominant vertebral arteries. Origins and courses of the bilateral vertebral arteries patent. Other: Soft tissues of the neck normal allowing for the phase of contrast. Degenerative changes of the cervical spine. Advanced emphysema at the lung apices. IMPRESSION: 1. 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 2. Critical stenosis of the origin of the left internal carotid artery. 3. Emphysema. The report will be called/faxed according to standard departmental protocol. Electronically signed by: Xavi Martinez M.D. 06/08/2018 3:51 PM Dictated Date/Time: 06/08/2018 3:44 PM
--- NOTE | 2018-06-08 16:54 | DIAGNOSTIC IMAGING REPORT ---
HEAD WITHOUT CONTRAST (CT) CT DOSE: 614.27 mGy.cm HISTORY: Mental status change worsening S/S, S/P TPA TECHNIQUE: Multiaxial CT images of the head were performed without the use of intravenous contrast. A dose lowering technique was utilized adhering to the principles of ALARA. Comparison: Study earlier the same date Findings: The paranasal sinuses and mastoid air cells are clear. The calvarium and skull base are intact. The ventricles and sulci are within normal limits. There is no mass, hematoma, midline shift, or acute infarct. Impression: No acute intracranial abnormality. Chronic small vessel change The above report was generated using voice recognition software. It may contain grammatical, syntax or spelling errors. Electronically signed by: Claude Jonas M.D. 06/08/2018 4:53 PM Dictated Date/Time: 06/08/2018 4:50 PM
[2018-06-08] MEDS ORDERED: CHOL1000 PO (17:51)
[2018-06-08] MEDS ORDERED: OMEG10007 PO (17:51)
[2018-06-08] MEDS ORDERED: COEN100C7 PO (17:51)
[2018-06-08] MEDS ORDERED: VITACAP26 PO (17:51)
[2018-06-08] MEDS ORDERED: TURM1CAP2 PO (17:51)
--- NOTE | 2018-06-08 17:56 | Medical Consult ---
Consultation Date of Consultation: Jun 08, 2018. Attending Physician: Dr Guadalupe History of Present Illness Pt is 73 y/o M with PMH HTN, history of SVT/nonischemic cardiomyopathy thought secondary to EtOH use, history EtOH abuse in past, no use for years,, CKD 3, dyslipidemia, history hyperkalemia on SAVANNA inhibitor presented to ER for right facial droop, right arm weakness, slurred speech started approximately 1 PM while at store. Right facial droop and right arm weakness as noted by EMS patient was brought to ER. Patient reports history intermittent right index finger tingling lasts for a couple seconds. Denies fever/chills, diaphoresis, N/ V/D/C, [place], dizziness, syncope, vision changes, neck pain, CP, SOB, orthopnea, palpitations, cough, sore throat, choking, otalgia, rhinorrhea, abdominal pain, extremity edema, rashes, urinary symptoms, weight changes. Patient evaluated in ER BP 160/70. Patient with noted right facial droop initial CT scan: No acute intracranial findings. 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 CTA neck IMPRESSION: 1. 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 2. Critical stenosis of the origin of the left internal carotid artery. 3. Emphysema. CTA HEAD IMPRESSION: 1. Occlusion of the right internal carotid artery. The right anterior circulation remains patent via collateral filling. No other vessel occlusion. No aneurysm. In ER Patient had telemetry neuro evaluation and patient received TPA. Patient had recurrent garbled speech while in ER and had a repeat head CT which was negative for hemorrhage. Past Medical/Surgical History Medical Problems: (1) Arrhythmia Status: Chronic (2) Lightheaded Status: Resolved (3) Vertigo Status: Resolved Family History FH: carotid endarterectomy Hypertension Social History Smoking Status: Former Smoker (quit 2002, previous 4ppd x 40 years) Smokeless Tobacco Use: No Alcohol Use: Quit 1995, previous heavy use Drug Use: none Marital Status: single Housing Status: lives alone Occupation Status: retired Allergies Coded Allergies: Lisinopril (Verified Allergy, Intermediate, overall physical decline, 09/06) Current Inpatient Medications Reported Home Medications Medications Dose Route/Sig Max Daily Dose Days Date Category Dose Instructions Lipitor (Atorvastatin Calcium) 20 Mg Tab 20 Mg PO DAILY 06/08/18 Reported Lopressor (Metoprolol Tartrate) 25 Mg Tab 25 Mg PO QPM 06/08/18 Reported Lopressor (Metoprolol Tartrate) 25 Mg Tab 50 Mg PO QAM 06/08/18 Reported TWO 25 MG TABLETS EVERY MORNING Norvasc (Amlodipine Besylate) 5 Mg Tab 5 Mg PO BID 06/08/18 Reported Review of Systems See HPI for pertinent positives & negatives. All other systems reviewed and were otherwise negative Physical Exam Date Time Temp Pulse Resp B/P (MAP) Pulse Ox O2 Delivery O2 Flow Rate FiO2 06/08/18 17:30 65 16 165/76 95 Room Air 06/08/18 17:00 62 16 156/81 97 Room Air 06/08/18 16:39 67 20 171/91 94 Room Air 06/08/18 16:24 66 16 149/70 95 Room Air 06/08/18 16:09 67 16 158/72 96 Room Air 06/08/18 15:55 62 18 149/71 94 Room Air 06/08/18 15:40 62 18 152/67 94 Room Air 06/08/18 15:11 67 18 156/70 96 Room Air 06/08/18 15:02 65 18 161/87 96 Room Air 06/08/18 14:53 63 20 160/72 97 Room Air 06/08/18 14:30 68 18 157/86 98 Room Air 06/08/18 14:15 68 18 157/103 98 Room Air 06/08/18 14:08 72 06/08/18 13:57 36.9 71 18 160/70 96 Room Air 06/08/18 13:57 36.9 71 18 160/74 96 Room Air 06/08/18 13:57 96 Room Air General Appearance: WD/WN, no apparent distress Head: normocephalic Eyes: normal inspection, PERRL, EOMI, sclerae normal ENT: hearing grossly normal, pharynx normal, + pertinent finding (mucous membranes moist. +slight bleeding noted from left upper molar) Neck: supple, trachea midline Respiratory/Chest: lungs clear, normal breath sounds, no respiratory distress Cardiovascular: regular rate, rhythm Abdomen/GI: normal bowel sounds, non tender, soft Neurologic/Psych: alert, normal mood/affect, oriented x 3, + pertinent finding (+right sided facial droop. speech clear at this time. tongue midline. symmetric bilateral eyebrow raise, normal finger to nose, no pronator drift noted. strength bilateral arms and legs equal at this time) Skin: warm/dry Laboratory Results Last 24 Hours Test 06/08/18 14:09 06/08/18 14:15 06/08/18 16:00 White Blood Count 8.55 K/uL Red Blood Count 4.82 M/uL Hemoglobin 15.5 g/dL Hematocrit 45.8 % Mean Corpuscular Volume 95.0 fL Mean Corpuscular Hemoglobin 32.2 pg Mean Corpuscular Hemoglobin Concent 33.8 g/dl Platelet Count 138 K/uL Mean Platelet Volume 10.8 fL Neutrophils (%) (Auto) 70.1 % Lymphocytes (%) (Auto) 18.9 % Monocytes (%) (Auto) 9.0 % Eosinophils (%) (Auto) 1.8 % Basophils (%) (Auto) 0.1 % Neutrophils # (Auto) 5.99 K/uL Lymphocytes # (Auto) 1.62 K/uL Monocytes # (Auto) 0.77 K/uL Eosinophils # (Auto) 0.15 K/uL Basophils # (Auto) 0.01 K/uL RDW Standard Deviation 43.9 fL RDW Coefficient of Variation 12.7 % Immature Granulocyte % (Auto) 0.1 % Immature Granulocyte # (Auto) 0.01 K/uL Prothrombin Time 10.5 SECONDS Prothromb Time International Ratio 1.0 Activated Partial Thromboplast Time 26.8 SECONDS Partial Thromboplastin Ratio 1.0 Sodium Level 139 mmol/L Potassium Level 4.1 mmol/L Chloride Level 109 mmol/L Carbon Dioxide Level 24 mmol/L Anion Gap 6.0 mmol/L 19.0 mmol/L Blood Urea Nitrogen 23 mg/dl Creatinine 1.49 mg/dl Est Creatinine Clear Calc Drug Dose 46.5 ml/min Estimated GFR () 52.8 Estimated GFR (Non- 45.6 BUN/Creatinine Ratio 15.7 Bedside Glucose 106 mg/dl Random Glucose 112 mg/dl Calcium Level 8.3 mg/dl Magnesium Level 1.9 mg/dl Total Creatine Kinase 126 U/L Creatine Kinase MB 1.6 ng/ml Creatine Kinase MB Ratio 1.3 Troponin I < 0.015 ng/ml Bedside Hemoglobin 15.3 g/dl Bedside Hematocrit 45 % Bedside Sodium 142 mEq/L Bedside Potassium 4.0 mEq/L Bedside Chloride 106 mEq/L Bedside Total CO2 22 mEq/l Bedside Blood Urea Nitrogen 25 mg/dl Bedside Creatinine 1.5 mg/dl Bedside Glucose (other) 116 mg/dl Bedside Ionized Calcium ([place]) 1.14 mmol/l Urine Color YELLOW Urine Appearance CLEAR Urine pH 5.5 Urine Specific [place] 1.010 Urine Protein NEG Urine Glucose (UA) NEG Urine Ketones NEG Urine Occult Blood NEG Urine Nitrite NEG Urine Bilirubin NEG Urine Urobilinogen NEG Urine Leukocyte Esterase NEG Assessment & Plan ACUTE STROKE SYMPTOMS BILATERAL CAROTID ARTERY STENOSIS In ER Patient had telemetry neuro evaluation and patient received TPA. Patient had recurrent garbled speech while in ER and had a repeat head CT which was negative for hemorrhage. CTA neck IMPRESSION: 1. 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 2. Critical stenosis of the origin of the left internal carotid artery. 3. Emphysema. CTA HEAD IMPRESSION: 1. Occlusion of the right internal carotid artery. The right anterior circulation remains patent via collateral filling. No other vessel occlusion. No aneurysm. REPEAT CT HEAD: Impression: No acute intracranial abnormality. Chronic small vessel change -Neurology consult with Dr. Eden - [facility] - recommends transfer to tertiary center ATTENDING ADDENDUM Patient seen and examined, care coordinated with Stacy Graves PA-C This is 73-year-old male brought to the ED with sudden onset of right facial droop right arm weakness, dysarthria Stroke alert was called Patient was evaluated by [facility] telemetry neurology unit Was given maria del carmen [place] hospitalist was asked to admit the patient to ICU Plan of care discussed with neurology Dr. Eden Updated regarding CTA neck and CTA head finding showing occlusion of right internal carotid artery/with critical stenosis of left internal carotid artery Per Dr. Eden, patient remains in the very high risk of embolic CVA from bilateral occluded ICA Second episode of stroke will be life threatening for the patient Without a neuro intervention/neurosurgery on board-patient cannot be managed adequately in [facility] ICU Recommend transfer to tertiary care center -ER physician updated regarding neurology recommendation -Patient was transferred to [facility] from the ED Jenny Guadalupe MD
[2018-06-08 20:30] VITALS: TEMP 36.5
[2018-06-09 00:30] VITALS: BP 164/79; PULSE 73; O2SAT 94
== END 2018-06-09 00:35 | disposition short-term general hospital (02) ==
LOC: C.EDA 13:57 → ENRESERV 17:36 → CANBEDREQ 17:39 → C.EDA 06-09 00:35
DX: I63.9 Cerebral infarction, unspecified (principal); I48.91 Unspecified atrial fibrillation; Z82.49 Family history of ischemic heart disease and other diseases of the circulatory system; Z79.899 Other long term (current) drug therapy; Z88.8 Allergy status to other drugs, medicaments and biological substances; R47.01 Aphasia; R29.810 Facial weakness; G81.91 Hemiplegia, unspecified affecting right dominant side; N18.3 Chronic kidney disease, stage 3 (moderate); I12.9 Hypertensive chronic kidney disease with stage 1 through stage 4 chronic kidney disease, or unspecified chronic kidney disease; E78.5 Hyperlipidemia, unspecified